=== PATIENT | male | born 1985 | race African-American/Black ===

== ENCOUNTER 2019-02-07 09:32 | Emergency (ER) | payer MEDICAID ==
[~2019-02-07] VITALS: Ht 182.9 cm; Wt 115.0 kg
[2019-02-07] MEDS ORDERED: HYDROCODONE/ACETAMINOPHEN 5/325MG TABLET PO ONE ×2 (10:15→11:45)
[2019-02-07] MEDS ORDERED: CEPHALEXIN 250MG CAPSULE PO ONE (11:45)
[2019-02-07 11:57] VITALS: BP 160/90
== END 2019-02-07 11:58 | disposition home or self-care (01) ==
LOC: ER 09:32
DX: L03.115 Cellulitis of right lower limb (principal); F17.200 Nicotine dependence, unspecified, uncomplicated
CPT/HCPCS: 73610; 99284